=== PATIENT | male | born 1980 | race Caucasian/White ===

== ENCOUNTER → 2016-10-06 | Outpatient (CLI) | payer SELFPAY ==
--- NOTE | 2016-10-06 14:27 | DI ---
CT HEAD W/O CONTRAST,10/06/2016 12:38 PM: Clinical History: Acute intractable headache. Previous Exam: None at this facility. Findings: Multiple helically acquired CT images are obtained through the brain without contrast, and demonstrat e normal, symmetric ventricles and other CSF containing spaces. There is no mass, hemorrhage or midli ne shift. The surrounding soft tissue and osseous structures are unremarkable. Impression: Normal CT head.
== END ==
LOC: CT 12:35
PROVIDERS: ATTEND Physician Assistant Medical
DX: R42 Dizziness and giddiness (principal); R51 Headache
CPT/HCPCS: 70450